=== PATIENT | female | born 1990 | race Caucasian/White ===

== ENCOUNTER 2018-08-03 20:33 | Emergency (ER) | payer BC ==
[2018-08-03] MEDS ORDERED: 0.9 % SODIUM CHLORIDE 1,000 ML BAG IV ONE (20:54)
[2018-08-03] MEDS ORDERED: ONDANSETRON HCL IV 4 MG/2 ML VIAL IV ONE (20:54)
--- NOTE | 2018-08-03 20:54 | Emergency Department Record ---
History of Present Illness - General Chief complaint: Female Urogenital Problem Stated complaint: UTI/NAUSEA/VOMITING Time Seen by Provider: 08/03/18 20:46 Source: Patient Mode of Arrival: Ambulatory Limitations: No limitations - History of Present Illness Initial comments: pt was dxd w a uti 2 weeks ago at [facility]. her rx was never called in. her symptoms have worsened. she is now vomiting, having diarrhea and having kidney pain MD Complaint: Other Onset/Timin -: Week(s) Location: Suprapubic, Other Radiation: L flank, R flank Severity: Moderate Severity scale (1-10): >10 Quality: Cramping, Sharp Consistency: Constant Improves with: None Worsens with: None Associated Symptoms: Nausea/vomiting, Other - Related Data Previous Rx's Medication Instructions Recorded Cephalexin [Keflex] 500 mg PO BID #14 cap 08/03/18 Allergies Allergy/AdvReac Type Severity Reaction Status Date / Time medroxyprogesterone acetate Allergy PT UNSURE Verified 06/17/17 10:19 [From Depo-Provera] OF REACTION red dye Allergy HIVES Verified 06/17/17 10:19 cyclobenzaprine AdvReac VOMITING Verified 06/17/17 10:19 [From Flexeril] methocarbamol [From Robaxin] AdvReac VOMITING Verified 06/17/17 10:19 paroxetine HCl [From Paxil] AdvReac ALTERED Verified 06/17/17 10:19 MENTAL STATUS Travel Screening - Travel/Exposure Within Last 30 Days Have you traveled within the last 30 days?: No - Travel/Exposure Within Last Year Have you traveled outside the [place] in the last year?: No - Additonal Travel Details Have you been exposed to anyone with a communicable illness?: No - Travel Symptoms Symptom Screening: None Review of Systems Reviewed: No additional complaints except as noted below Constitutional: Reports: As per HPI. Denies: Chills, Fever, Malaise, Night sweats, Weakness, Weight change Eyes: Reports: As per HPI. Denies: Eye discharge, Eye pain, Photophobia, Vision change ENT: Reports: As per HPI. Denies: Congestion, Dental pain, Ear pain, Epistaxis , Hearing loss, Throat pain Respiratory: Reports: As per HPI. Denies: Cough, Dyspnea, Hemoptysis, Stridor, Wheezes Cardiovascular: Reports: As per HPI. Denies: Arrhythmia, Chest pain, Dyspnea on exertion, Edema, Murmurs, Orthopnea, Palpitations, Paroxysmal nocturnal dyspnea, Rheumatic Fever, Syncope Endocrine: Reports: As per HPI. Denies: Fatigue, Heat or cold intolerance, Polydipsia, Polyuria Gastrointestinal: Reports: As per HPI, Nausea, Vomiting. Denies: Abdominal pain , Constipation, Diarrhea, Hematemesis, Hematochezia, Melena Genitourinary: Reports: As per HPI. Denies: Abnormal menses, Discharge, Dyspareunia, Dysuria, Frequency, Hematuria, Incontinence, Retention, Urgency Musculoskeletal: Reports: As per HPI. Denies: Arthralgia, Back pain, Gout, Joint swelling, Myalgia, Neck pain Skin: Reports: As per HPI. Denies: Bruising, Change in color, Change in hair/ nails, Lesions, Pruritus, Rash Neurological: Reports: As per HPI. Denies: Abnormal gait, Confusion, Headache, Numbness, Paresthesias, Seizure, Tingling, Tremors, Vertigo, Weakness Psychiatric: Reports: As per HPI. Denies: Anxiety, Auditory hallucinations, Depression, Homicidal thoughts, Suicidal thoughts, Visual hallucinations Hematological/Lymphatic: Reports: As per HPI. Denies: Anemia, Blood Clots, Easy bleeding, Easy bruising, Swollen glands Past Medical History - SOCIAL HISTORY Smoking Status: Current some day smoker Alcohol Use: None Drug Use: None - RESPIRATORY Hx Respiratory Disorders: No - CARDIOVASCULAR Hx Cardio Disorders: No - NEURO Hx Neuro Disorders: No - GI Hx GI Disorders: No - Hx Genitourinary Disorders: Yes Comment:: endometreosis - ENDOCRINE Hx Endocrine Disorders: No - MUSCULOSKELETAL Hx Musculoskeletal Disorders: No - PSYCH Hx Psych Problems: Yes Hx Anxiety: Yes - HEMATOLOGY/ONCOLOGY Hx Hematology/Oncology Disorders: No Family Medical History Any Significant Family History?: No Physical Exam - General General Appearance: Alert, Oriented x3, Cooperative, Mild distress - Head Head exam: Normal inspection - Eye Eye exam: Normal appearance, PERRL, EOMI Pupils: Normal accommodation - ENT ENT exam: Normal exam, Mucous membranes moist, Normal external ear exam, Normal orophraynx Ear exam: Normal external inspection. negative: External canal tenderness Nasal Exam: Normal inspection. negative: Discharge, Sinus tenderness Mouth exam: Normal external inspection, Tongue normal Teeth exam: Normal inspection. negative: Dental caries Throat exam: Normal inspection. negative: Tonsillar erythema, Tonsillar exudate - Neck Neck exam: Normal inspection, Full ROM. negative: Tenderness - Respiratory Respiratory exam: Normal lung sounds bilaterally. negative: Respiratory distress - Cardiovascular Cardiovascular Exam: Regular rate, Normal rhythm, Normal heart sounds - GI/Abdominal GI/Abdominal exam: Soft, Normal bowel sounds. negative: Tenderness - Rectal Rectal exam: Deferred - exam: Deferred - Extremities Extremities exam: Normal inspection, Full ROM, Normal capillary refill. negative: Tenderness - Back Back exam: Reports: Normal inspection, Full ROM. Denies: Muscle spasm, Rash noted, Tenderness - Neurological Neurological exam: Alert, CN II-XII intact, Normal gait, Oriented X3 - Psychiatric Psychiatric exam: Normal affect, Normal mood - Skin Skin exam: Dry, Intact, Normal color, Warm Course Vital Signs 08/03/18 20:38 Temperature 98.1 F Pulse Rate [ 98 H Pulse Ox Probe] Respiratory 18 Rate Blood Pressure 110/70 [Left Arm] Pulse Ox 98 Medical Decision Making - Lab Data Result diagrams: 08/03/18 20:55 08/03/18 20:55 Disposition Disposition: Discharge Clinical Impression: UTI (urinary tract infection) Qualifiers: Urinary tract infection type: acute cystitis Hematuria presence: without hematuria Qualified Code(s): N30.00 - Acute cystitis without hematuria Diarrhea Qualifiers: Diarrhea type: unspecified type Qualified Code(s): R19.7 - Diarrhea, unspecified Disposition: Home, Self-Care Condition: (1) Good Instructions: Urinary Tract Infection in Women (ED), Acute Diarrhea (ED) Additional Instructions: follow up with family doctor. return sooner if worse. push fluids. have urine rechecked in 2 weeks Prescriptions: Cephalexin [Keflex] 500 mg PO BID #14 cap Forms: Patient Portal Access Quality - Quality Measures Quality Measures: N/A - Blood Pressure Screening Does Patient Have Any of the Following: No Blood Pressure Classification: Normal BP Reading Systolic Measurement: 110 Diastolic Measurement: 70 Screening for High Blood Pressure: < Normal BP, F/U Not Required > [G8783]
[2018-08-03 21:05] LABS: BASO % 0.2 % (0-6); EOS % 1.4 % (0-6); GRAN % 61.6 % (47-80); HEMATOCRIT 36.5 % (35.0-47.0); HEMOGLOBIN 11.5 gm/dl (11.6-16.0); LYMPH % 30.9 % (16-45); MEAN CELL VOLUME 91.7 fl (81-97); MEAN CORPUSCULAR HGB CONC 31.5 g/dl (32-36); MEAN PLATELET VOLUME 9.9 fl (7.4-10.4); MONO % 5.9 % (0-9); PLATELET COUNT 313 K/uL (130-400); RED BLOOD COUNT 3.98 M/uL (3.80-5.40); RED CELL DISTRIBUTION WIDTH 12.7 % (11.5-14.5); WHITE BLOOD COUNT W/O DIFF 6.2 K/uL (4.2-12.2)
[2018-08-03 21:06] LABS: MEAN CORPUSCULAR HEMOGLOBIN 28.8 pg (27-33)
[2018-08-03] MEDS ORDERED: KETOROLAC 30 MG/ML VIAL IVP ONE (21:07)
[2018-08-03 21:17] LABS: BLOOD UREA NITROGEN 15 mg/dL (6-20); CREATININE 0.8 mg/dL (0.5-0.9); EST GLOMERULAR FILTRATION RATE > 60 mL/min
[2018-08-03 21:18] LABS: TOTAL PROTEIN 7.8 g/dL (6.6-8.7)
[2018-08-03 21:20] LABS: GLUCOSE,RANDOM 114 mg/dL (74-109)
[2018-08-03 21:22] LABS: ALB/GLOB RATIO 1.7 (1.1-1.8); ALBUMIN 4.9 g/dL (4.0-5.0); ALKALINE PHOSPHATASE 82 U/L (35-104); ALT/SGPT 11 U/L (<33); AST/SGOT 15 U/L (10.0-35.0)
[2018-08-03 21:23] LABS: LIPASE 52 U/L (13-60)
[2018-08-03 21:27] LABS: URINE APPEARANCE SL CLOUDY; URINE BILIRUBIN NEGATIVE (NEGATIVE); URINE BLOOD NEGATIVE (NEGATIVE); URINE COLOR ORANGE; URINE KETONE TRACE (NEGATIVE); URINE LEUKOCYTE ESTERASE SMALL (NEGATIVE); URINE NITRITE POSITIVE (NEGATIVE); URINE UROBILINOGEN >=8.0 E.U./dL (0.20 - 1.00)
[2018-08-03 21:36] LABS: URINE BACTERIA 1+; URINE RBC 0 - 2 (NONE SEEN); URINE WBC 21 - 35 (0-2/hpf)
[2018-08-03] MEDS ORDERED: ACETAMINOPHEN 1,000 MG/100 ML BTL IVPB ONE (22:09)
[2018-08-03 22:12] LABS: AMPHETAMINE SCREEN URINE NOT DETECTED; BARBITURATE SCREEN URINE NOT DETECTED; BENZODIAZEPINE SCREEN URINE NOT DETECTED; COCAINE SCREEN URINE NOT DETECTED; METHADONE SCREEN URINE NOT DETECTED; METHAMPHETAMINE SCREEN NOT DETECTED; OPIATE SCREEN URINE NOT DETECTED; OXYCODONE SCREEN URINE NOT DETECTED; PHENCYCLIDINE SCREEN URINE NOT DETECTED; PROPOXYPHENE SCREEN URINE NOT DETECTED; THC SCREEN URINE NOT DETECTED; TRICYCLIC ANTIDEPRESSANT SCRN NOT DETECTED
[2018-08-03] MEDS ORDERED: CEPHALEXIN 500 MG CAPSULE PO STA (23:04)
[2018-08-03] MEDS ORDERED: KETOROLAC 30 MG/ML VIAL IM ONE (23:07)
== END 2018-08-03 23:36 | disposition home or self-care (01) ==
LOC: ER 20:33
DX: N30.00 Acute cystitis without hematuria (principal); R11.2 Nausea with vomiting, unspecified; R19.7 Diarrhea, unspecified; F17.210 Nicotine dependence, cigarettes, uncomplicated
CPT/HCPCS: 99284 ×2; 96374; 96375; 83690; 85025; 80053; 81003; 81015; 80305; 74176; J1885; J2405; J7030

== ENCOUNTER 2018-10-07 14:08 | Emergency (ER) | payer BC ==
--- NOTE | 2018-10-07 15:33 | Emergency Department Record ---
History of Present Illness - General Chief Complaint: Chest Pain Stated Complaint: DENSIE,ABD PAIN,CHEST PAIN Time Seen by Provider: 10/07/18 14:52 Source: Patient Mode of Arrival: Ambulatory Limitations: No limitations - History of Present Illness Initial Comments: The patient is here due to abdominal pain for 9 days and abdominal bloating. She feels like her abdomen did when she was but she could not be due to having a ASHKAN in the past. She has had no nausea or vomiting or diarrhea and did have a normal BM today. Additionally she has been very anxious and has CP similar to her anxiety pain for days also. There has been no fever, back pain, VALENTIN, or dysuria. MD Complaint: Other Onset/Timin -: Days(s) Pain Location: Other - Related Data Home Medications Medication Instructions Recorded Confirmed Last Taken Lorazepam [Ativan] 2 mg PO DAILY 10/07/18 10/07/18 Unknown Allergies Allergy/AdvReac Type Severity Reaction Status Date / Time medroxyprogesterone acetate Allergy PT UNSURE Verified 06/17/17 10:19 [From Depo-Provera] OF REACTION red dye Allergy HIVES Verified 06/17/17 10:19 cyclobenzaprine AdvReac VOMITING Verified 06/17/17 10:19 [From Flexeril] methocarbamol [From Robaxin] AdvReac VOMITING Verified 06/17/17 10:19 paroxetine HCl [From Paxil] AdvReac ALTERED Verified 06/17/17 10:19 MENTAL STATUS Travel Screening - Travel/Exposure Within Last 30 Days Have you traveled within the last 30 days?: No - Travel/Exposure Within Last Year Have you traveled outside the [place] in the last year?: No - Additonal Travel Details Have you been exposed to anyone with a communicable illness?: No - Travel Symptoms Symptom Screening: None Review of Systems Constitutional: Denies: Chills, Fever Eyes: Denies: Eye discharge ENT: Denies: Congestion Respiratory: Denies: Cough, Dyspnea Cardiovascular: Denies: Arrhythmia Endocrine: Reports: Fatigue Gastrointestinal: Reports: Abdominal pain. Denies: Diarrhea, Nausea, Vomiting Genitourinary: Denies: Dysuria Musculoskeletal: Denies: Arthralgia Skin: Denies: Bruising Past Medical History - SOCIAL HISTORY Smoking Status: Never smoker Alcohol Use: None Drug Use: None - RESPIRATORY Hx Respiratory Disorders: No - CARDIOVASCULAR Hx Cardio Disorders: No - NEURO Hx Neuro Disorders: Yes Hx Seizures: Yes - GI Hx GI Disorders: Yes Hx Abdominal Pain: Yes - Hx Genitourinary Disorders: Yes Hx Bladder Problem: Yes (bladder surgery) Comment:: endometreosis - ENDOCRINE Hx Endocrine Disorders: No - MUSCULOSKELETAL Hx Musculoskeletal Disorders: No - PSYCH Hx Psych Problems: Yes Hx Anxiety: Yes - HEMATOLOGY/ONCOLOGY Hx Hematology/Oncology Disorders: No Family Medical History Any Significant Family History?: No Physical Exam - General General Appearance: Alert, Oriented x3, Cooperative, No acute distress - Head Head exam: Atraumatic, Normocephalic, Normal inspection - Eye Eye exam: Normal appearance, PERRL, EOMI - Neck Neck exam: Normal inspection, Full ROM. negative: Tenderness - Respiratory Respiratory exam: Normal lung sounds bilaterally, Chest wall tenderness (The patient's CP is 100% reproducible to palpation of the patient's anterior chest wall.). negative: Respiratory distress - Cardiovascular Cardiovascular Exam: Regular rate, Normal rhythm, Normal heart sounds. negative : Diastolic murmur, Systolic murmur - GI/Abdominal GI/Abdominal exam: Soft, Normal bowel sounds, Distended, Tenderness (There is diffuse tenderness to palpation in all 4 quads.). negative: Rebound, Rigid - Extremities Extremities exam: Normal inspection, Full ROM, Normal capillary refill. negative: Tenderness Course Vital Signs 10/07/18 14:12 Temperature 98.2 F Pulse Rate 87 Respiratory 18 Rate Blood Pressure 131/80 Pulse Ox 98 - Reevaluation(s) Reevaluation #1: The patient is doing much better at this time. Her pain is much better and she is resting comfortably. I did discuss the need to continue her anxiety medicine and see her PCP early next week for recheck. 10/07/18 17:13 Reevaluation #2: The patient at discharge was complaining of intermittent mild CP and AP. I did discuss the fact I felt there was no serious cardiac or pulmonary pathology due to the fact the patient's EKG and Trop was neg. I also strongly doubted any PE due to the fact she was Low Risk by Wells Score and PERC Neg. 10/07/18 17:51 Medical Decision Making - Data Complexity MDM Data: Labs Ordered and/or Reviewed, X-Ray Ordered and/or Reviewed, EKG Ordered and/or Reviewed - Lab Data Result diagrams: 10/07/18 15:00 10/07/18 15:00 - EKG Data -: EKG Interpreted by Me EKG: No Acute Changes, Normal EKG - Radiology Data Radiology results: Report reviewed (Abd/pelvis CT: Neg for acute changes.) Disposition Disposition: Discharge Clinical Impression: Anxiety about health Disposition: Home, Self-Care Condition: (2) Stable Instructions: Anxiety (ED) Additional Instructions: Please continue your regular anxiety medicine and use Tylenol for pain. Please see your family doctor for recheck early next week. Return to the ER for any worsening problems. Forms: Patient Portal Access Time of Disposition: 17:15 Quality - Quality Measures Quality Measures: N/A - Blood Pressure Screening View Details: Yes Does Patient Have Any of the Following: No Blood Pressure Classification: Normal BP Reading Systolic Measurement: 103 Diastolic Measurement: 74 Screening for High Blood Pressure: < Normal BP, F/U Not Required > [G8783]
[2018-10-07] MEDS ORDERED: MORPHINE SULFATE 10 MG/ML VIAL IVP ONE (15:39)
[2018-10-07] MEDS: LORAZEPAM 2 MG/ML VIAL IV ONE ×2 (15:56→16:38)
[2018-10-07] MEDS: ONDANSETRON HCL IV 4 MG/2 ML VIAL IVP ONE (15:56)
[2018-10-07 15:57] LABS: BASO % 0.3 % (0-6); EOS % 1.5 % (0-6); GRAN % 61.5 % (47-80); HEMOGLOBIN 12.1 gm/dl (11.6-16.0); LYMPH % 29.5 % (16-45); MEAN CELL VOLUME 88.7 fl (81-97); MEAN CORPUSCULAR HGB CONC 32.7 g/dl (32-36); MEAN PLATELET VOLUME 10.4 fl (7.4-10.4); MONO % 7.2 % (0-9); PLATELET COUNT 264 K/uL (130-400); RED BLOOD COUNT 4.17 M/uL (3.80-5.40); RED CELL DISTRIBUTION WIDTH 12.9 % (11.5-14.5); WHITE BLOOD COUNT W/O DIFF 5.9 K/uL (4.2-12.2)
[2018-10-07 15:57] LABS: URINE APPEARANCE CLEAR; URINE BILIRUBIN NEGATIVE (NEGATIVE); URINE BLOOD NEGATIVE (NEGATIVE); URINE COLOR YELLOW; URINE GLUCOSE (UA) NEGATIVE (NEGATIVE); URINE KETONE NEGATIVE (NEGATIVE); URINE LEUKOCYTE ESTERASE NEGATIVE (NEGATIVE); URINE NITRITE NEGATIVE (NEGATIVE); URINE PROTEIN NEGATIVE (NEGATIVE); URINE UROBILINOGEN 0.2 E.U./dL (0.20 - 1.00)
[2018-10-07] MEDS: SODIUM CHLORIDE 0.9% 500 ML IV ONE (16:03)
[2018-10-07 16:09] LABS: BLOOD UREA NITROGEN 16 mg/dL (6-20); CREATININE 0.7 mg/dL (0.5-0.9); EST GLOMERULAR FILTRATION RATE > 60 mL/min
[2018-10-07] MEDS: KETOROLAC 30 MG/ML VIAL IVP ONE (16:09)
[2018-10-07 16:12] LABS: GLUCOSE,RANDOM 105 mg/dL (74-109)
[2018-10-07 16:15] LABS: ALBUMIN 4.7 g/dL (4.0-5.0); ALKALINE PHOSPHATASE 105 U/L (35-104); ALT/SGPT 13 U/L (<33); AST/SGOT 17 U/L (10.0-35.0); LIPASE 45 U/L (13-60)
[2018-10-07 16:18] LABS: BILIRUBIN,DIRECT < 0.2 mg/dL (0-0.3)
[2018-10-07] MEDS: ACETAMINOPHEN 1,000 MG/100 ML BTL IVPB ONE (16:33)
[2018-10-07] MEDS ORDERED: LORAZEPAM 0.5 MG TABLET PO ONE (17:21)
--- NOTE | 2018-10-09 18:24 | CT SCAN REPORT ---
EXAM: CT SCAN ABDOMEN/PELVIS WO CONTRAST HISTORY: GENERALIZED ABDOMINAL PAIN WITH DISTENTION. PROTRUDING LUMP ON THE RIGHT SIDE. PREVIOUS HISTORY OF ENDOMETRIOSIS AND MULTIPLE ABDOMINAL SURGERIES. TECHNIQUE: Standard CT imaging of the abdomen and pelvis was performed without contrast. COMPARISON: 08/03/2018. FINDINGS: The lung bases are clear. The previously noted nodules are not seen on today's study. The liver parenchyma is normal. The gallbladder. Biliary tree , pancreas, spleen, and adrenal glands are normal. The kidneys and ureters are normal. There is no urinary tract calculus or obstructive uropathy. The aorta is normal in caliber. There is no lymphadenopathy. The large and small bowel loops are normal. The appendix is visualized and is unremarkable. There is no pneumoperitoneum or ascites. The urinary bladder is normal. The uterus is surgically absent. There is a tiny fat-containing umbilical hernia, which is stable. There is no ventral hernia. The abdominal wall and subcutaneous fat appear normal. There are no acute osseous abnormalities. IMPRESSION: 1. STABLE CT SCAN OF THE ABDOMEN AND PELVIS. NO ACUTE INTRAABDOMINAL PROCESS IDENTIFIED. 2. STATUS POST HYSTERECTOMY. 3. STABLE TINY UMBILICAL HERNIA. JOB NUMBER: [id number] [facility]
== END 2018-10-07 17:33 | disposition home or self-care (01) ==
LOC: ER 14:08
DX: F41.8 Other specified anxiety disorders (principal); R10.84 Generalized abdominal pain; R07.89 Other chest pain
CPT/HCPCS: 99284 ×2; 96376; 96374; 96375; 83690; 85025; 80076; 80048; 81003; 84484; 74176; 93005; 93010; J1885; J2405; J2060